=== PATIENT | female | born 1980 | race Caucasian/White ===

== ENCOUNTER 2017-10-19 15:59 | Emergency (ER) | payer OTHER ==
[2017-10-19] MEDS: ONDANSETRON (ODT) 4 MG TAB ODT (17:23)
[2017-10-19] MEDS: KETOROLAC 30 MG INJ IM (17:57)
[2017-10-19] MEDS: HYDROCODONE/APAP (5/325) TAB PO (18:05)
[2017-10-19 18:20] LABS: ADD UMIC YES; UR ASCORBIC ACID NEGATIVE (NEGATIVE); UR BILIRUBIN (Dip) NEGATIVE (NEGATIVE); UR BLOOD (Dip) 3+ mg/dL (NEGATIVE); UR CLARITY CLEAR (CLEAR); UR COLOR YELLOW (YELLOW); UR GLUCOSE (Dip) NEGATIVE (NEGATIVE); UR KETONES (Dip) NEGATIVE (NEGATIVE); UR LEUKOCYTE ESTERASE (Dip) NEGATIVE Leu/ul (NEGATIVE); UR NITRITE (Dip) NEGATIVE (NEGATIVE); UR RBC 131 /HPF (0-5); UR SQUAMOUS EPITHELIAL CELL FEW /HPF (FEW); UR TOTAL PROTEIN (Dip) NEGATIVE (NEGATIVE); UR UROBILINOGEN (Dip) NEGATIVE (NEGATIVE); UR WBC 16 /HPF (0-5)
[2017-10-19 18:31] LABS: AMPHETAMINE/METHAMPHETAMINE Negative (NEGATIVE)
[2017-10-19 18:35] LABS: BARBITURATES Negative (NEGATIVE); BENZODIAZEPINES Negative (NEGATIVE); CANNABINOIDS Negative (NEGATIVE); COCAINE Negative (NEGATIVE); OPIATES Negative (NEGATIVE)
== END 2017-10-19 19:01 | disposition home or self-care (01) ==
LOC: FTE 15:59
DX: B34.9 Viral infection, unspecified (principal); R11.2 Nausea with vomiting, unspecified
CPT/HCPCS: 71046; 80307; 81001; 81025; 87400; 93005; 96372; 99285-25